=== PATIENT | male | born 1990 | race Caucasian/White ===

== ENCOUNTER 2025-05-21 16:40 | Emergency (ER) | payer MEDICAID ==
[~2025-05-21] VITALS: Ht 167.6 cm; Wt 65.5 kg
[2025-05-21 16:51] VITALS: BP 118/85; PULSE 91; RESP 18; O2SAT 97
--- NOTE | 2025-05-21 17:19 | Physician Documentation ---
HPI ~ General Chief Complaint: Medication Request Stated Complaint: SEE CHIEF COMPLAINT Time Seen by MD: 17:15 History of Present Illness HPI Comments This is a 34-year-old male who presents requesting HIV post exposure prophylaxis after unprotected anonymous sex three days prior, patient reports that he is traveling through the area on his way home and will [facility] as he is most concerned about starting HIV prophylaxis while he is in the [place]. Patient reports no physical symptoms or other acute symptoms or concerns. Medication Reconciliation Allergies: Coded Allergies: tree nut (Unverified Allergy, Unknown, 05/21/25) Scheduled Emtricitabine/Tenofovir (Truvada 200 Mg-300 Mg Tablet), 1 TAB PO DAILY Raltegravir Potassium (Isentress tablet), 1 TAB PO Q12H Review of Systems ROS As stated above in the HPI, otherwise all systems are reviewed and negative. Physical Exam Physical Exam Vital Signs: Temperature: 98.9, Source: Temporal, Heart Rate: 91, Respiratory Rate: 18, BP: 118/85, Pulse Oximetry: 97, Weight: 65.450 Oxygen Flow Rate: 0 Physical Exam VITALS: Reviewed and as above. GENERAL: Alert, nontoxic appearing, no apparent distress. RESPIRATORY: No increased work of breathing, no respiratory distress, speaking in full clear sentences Progress Results/Orders Results/Orders Completed Orders - NADJA BLANCO CMP (05/21/25 17:14) Hiv Ab 1&2 Rapid Scn (05/21/25 17:14) Emtricitabine/Tenofovir (Truvada 200mg-3 (05/21/25 18:35) Raltegravir Tablet (Isentress Tablet) (05/21/25 18:55) Vital Signs 05/21/25 05/21/25 16:51 19:42 Temp 98.9 98.9 Pulse 91 Resp 18 B/P (MAP) 118/85 Pulse Ox 97 O2 Flow Rate 0 Laboratory Tests Test 05/21/25 17:33 Sodium Level 140 Potassium Level 3.7 Chloride Level 104 Carbon Dioxide Level 29.7 Anion Gap 6 L Blood Urea Nitrogen 10 Creatinine 0.89 Estimated GFR/1.73 m2 > 90 BUN/Creatinine Ratio 11.2 Glucose Level 96 Calcium Level 9.2 Total Bilirubin 0.4 Aspartate Amino Transf (AST/SGOT) 19 Alanine Aminotransferase (ALT/SGPT) 19 Alkaline Phosphatase 81 Total Protein 8.6 H Albumin 4.4 Globulin 4.2 Albumin/Globulin Ratio 1.0 L Chemistry Comments HIV (1&2) Antibody Non-reactive Medical Decision Making Additional information obtaine: N/A Findings This 34-year-old male presented requesting HIV post exposure prophylaxis after engaging in unprotected anonymous sex three days prior, given high-risk sexual activity patient does qualify for post exposure prophylaxis in his we will be prescribed liver function tests are normal and HIV test is negative. With shared decision-making testing and treatment for other STIs will be deferred until he can follow up with a local provider when he gets home tomorrow. Patient is otherwise well-appearing and appropriate for outpatient follow up. Differential Dx:Considerations: Include: Adverse circumstances, Economic, Psychosocial, Medical services unavail., Other (HIV, STI exposure) Departure Time of Disposition: 19:11 Disposition: HOME / SELF CARE / HOMELESS Impression: Primary Impression: Potential exposure to STD Condition: Improved Additional Instructions: I have started you on HIV post exposure prophylaxis, given your potential exposure to other STIs I recommend following up with your local [facility] or your primary care provider. Please take the medication as prescribed for the next 28 days, follow up with your primary care provider or sexual health clinic for retesting for HIV status. Refrain from unprotected sex until all testing has resolved. Please follow up with your primary care provider in the next few days. Please return to the emergency dep artment for any new or worsening concerning symptoms. Referrals: NO PRIMARY CARE PROVIDER (PCP) Prescriptions Raltegravir Potassium (Isentress tablet) 400 Mg Tablet 1 TAB PO Q12H for 30 Days, #60 TAB 0 Refills Prov: NADJA BLANCO 05/21/25 Emtricitabine/Tenofovir (Truvada 200 Mg-300 Mg Tablet) 200 Mg-300 Mg Tablet 1 TAB PO DAILY for 30 Days, #30 TAB 0 Refills Prov: NADJA BLANCO 05/21/25 Education Educated: Patient Educated regarding: diagnosis, treatment, prognosis, need for follow up Signature Scribe Signature: No scribe Attestation: The note accurately reflects work and decisions made by me.RM Ridley 05/22/25 12:36 NADJA BLANCO May 21, 2025 17:19
[2025-05-21 18:08] LABS: CREATININE 0.89 MG/DL (0.60-1.10); TOTAL CARBON DIOXIDE 29.7 MMOL/L (24-32); eCRCL 107 ML/MIN; eGFR > 90 ML/MIN
[2025-05-21 18:44] LABS: HIV ANTIBODY 1&2 RAPID NON-REACTIVE (Neg)
[2025-05-21] MEDS: emtricitabine/tenofovir 200mg/300mg tablet PO ONE (19:16)
[2025-05-21] MEDS: raltegravir 400mg tablet PO ONE (19:16)
[2025-05-21] MEDS ORDERED: EMTR1TAB21 PO (19:20)
[2025-05-21] MEDS ORDERED: RALT400T PO (19:20)
[2025-05-21 19:42] VITALS: TEMP 98.9
== END 2025-05-21 19:43 | disposition home or self-care (01) ==
LOC: ER 16:43
DX: Z20.2 Contact with and (suspected) exposure to infections with a predominantly sexual mode of transmission (principal); Z91.018 Allergy to other foods; Z79.899 Other long term (current) drug therapy
CPT/HCPCS: 36415; 80053; 86703; 99283